=== PATIENT | female | born 1990 | race Caucasian/White ===

== ENCOUNTER 2019-01-03 22:33 | Emergency (ER) | payer BC ==
[2019-01-03 23:58] LABS: Absolute Lymphocytes (CBC) 2.6 K/uL (0.7-4.9); Absolute Monocytes 0.5 K/uL (0.1-1.3); Absolute Neutrophil 2.6 K/uL (1.8-8.0); Basophils % 0.8 % (0-1.3); Eosinophils % 6.1 % (0-4.4); Hematocrit 37.3 % (36.0-45.0); Lymphocytes % 42.5 % (15.3-44.8); MPV 8.7 fL (7.6-11.3); RBC Red Blood Cell Count 4.35 M/uL (3.86-4.86)
[2019-01-04 00:06] LABS: BUN Blood Urea Nitrogen 16 mg/dL (7-18); Bicarbonate 26 mmol/L (21-32); Glucose Level 84 mg/dL (74-106); Potassium 3.9 mmol/L (3.5-5.1); Sodium Level 141 mmol/L (136-145)
--- NOTE | 2019-01-04 00:07 | ER ---
Nurse's Notes [facility] Name: Nini Bradshaw Age: 28 yrs Sex: Female : 1990 Arrival Date: 01/03/2019 Time: 22:50 Bed 26 Private MD: Diagnosis: Other abnormal uterine and vaginal bleeding-post delivery Presentation: 01/03 22:55 Presenting complaint: Patient states: that 4 1/2 weeks ago she had a and then fc 3-4 days ago started to have vaginal bleeding along with lower abdominal pain and cramping. Spoke with Dr Shoemaker at [facility] and was told to come to ER. Has gone thru 6 pads today alone. Transition of care: patient was not received from another setting of care. Onset of symptoms was January 03, 2019. Risk Assessment: Do you want to hurt yourself or someone else? Patient reports no desire to harm self or others. Initial Sepsis Screen: Does the patient meet any 2 criteria? No. Patient's initial sepsis screen is negative. Does the patient have a suspected source of infection? No. Patient's initial sepsis screen is negative. Care prior to arrival: None. 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 - Social history:: Smoking status: Patient/guardian denies using tobacco, Patient/guardian denies using alcohol, street drugs. - Ebola Screening: : Patient negative for fever greater than or equal to 101.5 degrees Fahrenheit, and additional compatible Ebola Virus Disease symptoms Patient denies exposure to infectious person Patient denies travel to an Ebola-affected area in the 21 days before illness onset. Screenin:55 Abuse screen: Denies threats or abuse. Nutritional screening: No deficits noted. fc Tuberculosis screening: No symptoms or risk factors identified. Fall Risk None identified. Assessment: 23:00 General: Appears in no apparent distress. comfortable, Behavior is calm, cooperative, ca1 appropriate for age. Pain: Complains of pain in abdomen Pain currently is 5 out of 10 on a pain scale. Neuro: Level of Consciousness is awake, alert, obeys commands, Oriented to person, place, time, situation. Cardiovascular: Heart tones S1 S2 present Capillary refill < 3 seconds Patient's skin is warm and dry. Respiratory: Airway is patent Respiratory effort is even, unlabored, Respiratory pattern is regular, symmetrical, Breath sounds are clear bilaterally. GI: Abdomen is round non-distended, Bowel sounds present X 4 quads. Abd is soft and non tender X 4 quads. : Urine is blood tinged, Reports vaginal bleeding that is bright red, moderate flow. EENT: No deficits noted. No signs and/or symptoms were reported regarding the EENT system. Derm: Skin is intact, is healthy with good turgor, Skin is pink, warm \T\ dry. Musculoskeletal: Circulation, motion, and sensation intact. Capillary refill < 3 seconds. 01/04 00:00 Reassessment: Patient appears in no apparent distress at this time. Patient and/or ca1 family updated on plan of care and expected duration. Pain level reassessed. Patient is alert, oriented x 3, equal unlabored respirations, skin warm/dry/pink. Vital Signs: 01/03 22:55 BP 100 / 74; Pulse 73; Resp 18; Temp 98.0(O); Pulse Ox 98% on R/A; Weight 58.97 kg (R); Height 5 ft. 4 in. (162.56 cm) (R); Pain 3/10; 01/04 00:00 BP 110 / 72; Pulse 71; Resp 19 S; Pulse Ox 98% on R/A; ca1 01/03 22:55 Body Mass Index 22.31 (58.97 kg, 162.56 cm) ED Course: 01/03 22:50 Patient arrived in ED. mr 22:55 Arm band placed on Patient placed in an exam room, on a stretcher. 22:55 Patient has correct armband on for positive identification. Bed in low position. Call light in reach. 23:00 Pulse ox on. NIBP on. Warm blanket given. ca1 23:02 Carlos Arce PA is PHCP. jr8 23:02 Aquiles Crockett MD is Attending Physician. jr8 23:07 Triage completed. fc 23:08 Malena Solano, RN is Primary Nurse. ca1 23:29 Primary Nurse role handed off by Malena Solano, MEÑO rv 23:29 Dre Brown, MEÑO is Primary Nurse. rv 23:35 Initial lab(s) drawn, by az, sent to lab. via 22-gauge needle and 10 mlsyringe. Extra jp3 Blue top collected and sent with blood. 23:59 Assist provider with pelvic exam: Set up pelvic tray. Performed by Carlos ALEXANDER ca1 Patient tolerated well. 01/04 00:12 Patient did not have IV access during this emergency room visit. rv Administered Medications: No medications were administered Outcome: 00:05 Discharge ordered by . jr8 00:12 Discharged to home ambulatory. rv 00:12 Condition: good 00:12 Discharge instructions given to patient, Instructed on discharge instructions, follow up and referral plans. Demonstrated understanding of instructions, follow-up care. 00:13 Patient left the ED. rv Signatures: Connie VidalesalejandroSarah, RN RN Carlos Arce PA PA jr8 Dre Brown, MEÑO RN Nael Zapata jp3 Malena Solano, MEÑO RN ca1 Corrections: (The following items were deleted from the chart) 01/03 23:59 22:55 No provider procedures requiring assistance completed. ca1 23:59 23:59 Assist provider with pelvic exam: Set up pelvic tray. Performed by Carlos ALEXANDER ca1 Vaginal packing inserted. Patient tolerated well. ca1
--- NOTE | 2019-01-04 00:07 | EDPHYS ---
Physician Documentation [facility] Name: Nini Bradshaw Age: 28 yrs Sex: Female : 1990 Arrival Date: 01/03/2019 Time: 22:50 Bed 26 Private MD: ED Physician Aquiles Crockett HPI: 01/03 23:29 This 28 yrs old Female presents to ER via Ambulatory with complaints of jr8 Vaginal Bleeding. 23:29 The patient presents with vaginal bleeding that is heavy, with clots, reports using 6 jr8 pads or tampons per day. Onset: The symptoms/episode began/occurred gradually, 4 day(s) ago. Modifying factors: the symptoms are aggravated by movement. Associated signs and symptoms: Pertinent positives: cramping, vaginal bleeding, Pertinent negatives: constipation, diarrhea, fever, nausea, urinary frequency. Severity of symptoms: in the emergency department the symptoms a " 3" out of "10". The patient has not experienced similar symptoms in the past. The patient has not recently seen a physician. The patient has not recently seen a physician, called to get an appointment and instead was told to go to the emergency department. Patient reports she had a 4 1/2 weeks ago and is currently breast feeding her . On Friday she started experiencing mild vaginal bleeding that progressed to heavy bleeding and cramping. Today she started feeling fatigued and light headed . 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 - Social history:: Smoking status: Patient/guardian denies using tobacco, Patient/guardian denies using alcohol, street drugs. - Ebola Screening: : Patient negative for fever greater than or equal to 101.5 degrees Fahrenheit, and additional compatible Ebola Virus Disease symptoms Patient denies exposure to infectious person Patient denies travel to an Ebola-affected area in the 21 days before illness onset. ROS: 23:34 Positive for pelvic pain, vaginal bleeding, Negative for urinary symptoms, flank jr8 pain, burning with urination, difficulty urinating, foul smelling urine, vaginal discharge. 23:34 Constitutional: Negative for fever, chills, and weight loss, Cardiovascular: Negative for chest pain, palpitations, and edema, Respiratory: Negative for shortness of breath, cough, wheezing, and pleuritic chest pain, Abdomen/GI: Negative for abdominal pain, nausea, vomiting, diarrhea, and constipation, MS/Extremity: Negative for injury and deformity, Skin: Negative for injury, rash, and discoloration, Neuro: Negative for headache, weakness, numbness, tingling, and seizure. 23:34 : Positive for vaginal bleeding. 23:34 Neuro: Positive for dizziness. Exam: 23:36 Constitutional: This is a well developed, well nourished patient who is awake, alert, jr8 and in no acute distress. Cardiovascular: Regular rate and rhythm with a normal S1 and S2. No gallops, murmurs, or rubs. Normal PMI, no JVD. No pulse deficits. Respiratory: Lungs have equal breath sounds bilaterally, clear to auscultation and percussion. No rales, rhonchi or wheezes noted. No increased work of breathing, no retractions or nasal flaring. Abdomen/GI: Soft, non-tender, with normal bowel sounds. No distension or tympany. No guarding or rebound. No evidence of tenderness throughout. Skin: Warm, dry with normal turgor. Normal color with no rashes, no lesions, and no evidence of cellulitis. MS/ Extremity: Pulses equal, no cyanosis. Neurovascular intact. Full, normal range of motion. 23:36 Eyes: Pupils: equal, round, and reactive to light and accomodation, Extraocular movements: intact throughout, Conjunctiva: pale, bilaterally. 01/04 00:02 : Exam negative for discharge, bladder tenderness, bladder distension, Pelvic Exam: jr8 External exam: is normal, Speculum exam: mild bleeding, blood clots in vaginal vault, no cervicitis, os that is open, no tissue in cervix is seen, no tissue in vagina is seen, the nurse was present for the exam. Vital Signs: 01/03 22:55 BP 100 / 74; Pulse 73; Resp 18; Temp 98.0(O); Pulse Ox 98% on R/A; Weight 58.97 kg (R); fc Height 5 ft. 4 in. (162.56 cm) (R); Pain /; 01/04 00:00 BP 110 / 72; Pulse 71; Resp 19 S; Pulse Ox 98% on R/A; ca1 01/03 22:55 Body Mass Index 22.31 (58.97 kg, 162.56 cm) fc MDM: 01/03 23:08 Patient medically screened. jr8 01/04 00:06 Data reviewed: vital signs, nurses notes, lab test result(s), CBC. Counseling: I had a jr8 detailed discussion with the patient and/or guardian regarding: the historical points, exam findings, and any diagnostic results supporting the discharge/admit diagnosis, lab results, the need for outpatient follow up, for definitive care, an OB/Gyne specialist, to return to the emergency department if symptoms worsen or persist or if there are any questions or concerns that arise at home. 00:07 ED course: Moderate amount of dark red blood with clotting present in vaginal vault on jr8 examination. Discussed findings and lab results with patient. Advised patient to follow up with c4 planner for further evaluation upon discharge, or return for any increase in bleeding. . 01/03 23:11 Order name: Urine Test (obtain specimen); Complete Time: 23:16 jr8 01/03 23:11 Order name: Urine Dipstick-Ancillary (obtain specimen); Complete Time: 23:16 jr8 01/03 23:48 Order name: Basic Metabolic Panel; Complete Time: 00:09 [facility] 01/03 23:48 Order name: CBC with Automated Diff; Complete Time: 00:01 [facility] 01/03 23:36 Order name: Pelvic Exam Setup; Complete Time: 23:42 jr8 Administered Medications: No medications were administered Disposition: 01:41 Co-signature as Attending Physician, Aquiles Crockett MD. rn Disposition: 01/04/19 00:05 Discharged to Home. Impression: Other abnormal uterine and vaginal bleeding - post delivery. - Condition is Stable. - Discharge Instructions: Abnormal Uterine Bleeding, [id number]. - Medication Reconciliation Form, Thank You Letter, Antibiotic Education, Prescription Opioid Use form. - Follow up: Private Physician; When: 1 - 2 days; Reason: Worsening of condition, Recheck today's complaints, Re-evaluation by your physician. - Problem is new. - Symptoms are unchanged. Signatures: Dispatcher [employer] EDSarah Odom RN RN Aquiles Barriga MD MD rn Roszak, Josh, PA PA jr8 Dre Brown RN RN rv Corrections: (The following items were deleted from the chart) 00:13 00:05 01/04/2019 00:05 Discharged to Home. Impression: Other abnormal uterine and rv vaginal bleeding - post delivery. Condition is Stable. Forms are Medication Reconciliation Form, Thank You Letter, Antibiotic Education, Prescription Opioid Use. Follow up: Private Physician; When: 1 - 2 days; Reason: Worsening of condition, Recheck today's complaints, Re-evaluation by your physician. Problem is new. Symptoms are unchanged. jr8
== END 2019-01-04 00:13 | disposition home or self-care (01) ==
LOC: ER 22:33
DX: N93.9 Abnormal uterine and vaginal bleeding, unspecified (principal); Z98.890 Other specified postprocedural states
CPT/HCPCS: 36415; 80048; 85025; 99283